=== PATIENT | male | born 1955 | race Caucasian/White ===

== ENCOUNTER 2016-12-30 13:20 | Inpatient (IN) | payer MEDICARE, MEDICAID ==
[~2016-12-30] VITALS: Ht 182.9 cm; Wt 134.9 kg
[2016-12-30] MEDS ORDERED: SODIUM CHLORIDE 0.9% 1,000ML IVBOLUS ONE (14:00)
[2016-12-30] MEDS ORDERED: SODIUM CHLORIDE FLUSH 10ML SYR IVF ONE (14:00)
[2016-12-30 14:16] LABS: HEMATOCRIT 46.3 % (39.2-51.8); HEMOGLOBIN 15.4 g/dL (13.7-18.0); WHITE BLOOD COUNT 9.7 x10^3/uL (3.4-10)
[2016-12-30 14:28] LABS: BLOOD UREA NITROGEN 15 mg/dL (7-18)
[2016-12-30] MEDS ORDERED: CLINDAMYCIN PMX 600MG/50ML 50 ML IV ONE (15:30)
[2016-12-30] MEDS ORDERED: VANCOMYCIN 2,000 MG in SODIUM CHLORIDE 0.9% 500 ML IV ONE (15:30)
[2016-12-30] MEDS ORDERED: PIPERACILLIN/TAZO/PMX 3.375GM 50 ML IV ONE (15:30)
[2016-12-30] MEDS ORDERED: VANCOMYCIN PER PHARMACY MC ONE (15:30)
[2016-12-30] MEDS ORDERED: ASPI-621 PO (15:36)
[2016-12-30] MEDS ORDERED: PIPERACILLIN/TAZO/PMX 3.375GM 50 ML ONE (15:44)
[2016-12-30] MEDS ORDERED: VANCOMYCIN PMX 1GM/200ML 200 ML IV ONE (16:00)
[2016-12-30] MEDS ORDERED: ONDANSETRON 2MG/ML, 2ML IVPush PRN (16:00)
[2016-12-30] MEDS ORDERED: TEMAZEPAM 15 MG CAPSULE PO PRN (16:00)
[2016-12-30] MEDS ORDERED: VANCOMYCIN PER PHARMACY MC PRN (16:00)
[2016-12-30] MEDS ORDERED: MORPHINE SULFATE 4 MG/ML, 1ML IVPush PRN (16:00)
[2016-12-30] MEDS ORDERED: ACETAMINOPHEN 325 MG TABLET PO PRN (16:00)
[2016-12-30] MEDS ORDERED: hydrALAzine 20 MG/ML, 1ML IVPush PRN (16:00)
[2016-12-30 17:42] VITALS: BP 157/75
[2016-12-30] MEDS ORDERED: PIPERACILLIN/TAZO/PMX 3.375GM 50 ML IV SCH (18:00)
[2016-12-30] MEDS ORDERED: PHARMACOKINETIC MONITORING MC PRN (18:00)
[2016-12-30 20:04] VITALS: BP 160/85
[2016-12-30] MEDS: PIPERACILLIN/TAZO/PMX 3.375GM 50 ML IV SCH (21:00)
[2016-12-30] MEDS: LISINOPRIL 20 MG TABLET PO SCH (21:19)
[2016-12-30] MEDS: METOPROLOL TARTRATE 50 MG TABLET PO SCH (21:19)
[2016-12-30] MEDS: INSULIN DETEMIR 100 UNITS/ML, PEN SQ-INSULIN SCH (21:19)
[2016-12-30] MEDS: ENOXAPARIN 40 MG/0.4 ML SQ SCH (21:20)
[2016-12-30] MEDS: INSULIN ASPART 100 UNITS/ML, PEN SQ-INSULIN SCH (21:55)
[2016-12-31] MEDS: HYDROcodone/APAP 5/325 TABLET PO PRN ×4 (00:19→21:03)
[2016-12-31 01:57] VITALS: BP 124/66
[2016-12-31] MEDS: PIPERACILLIN/TAZO/PMX 3.375GM 50 ML IV SCH ×4 (03:21→21:12)
[2016-12-31 05:35] LABS: HEMATOCRIT 44.7 % (39.2-51.8); HEMOGLOBIN 14.8 g/dL (13.7-18.0); WHITE BLOOD COUNT 7.8 x10^3/uL (3.4-10)
[2016-12-31] MEDS: METOPROLOL TARTRATE 50 MG TABLET PO SCH ×2 (06:15→16:38)
[2016-12-31 06:19] LABS: ASPARTATE AMINO TRANSFERASE 22 U/L (15-37); BLOOD UREA NITROGEN 12 mg/dL (7-18)
[2016-12-31] MEDS ORDERED: GADOBUTROL 10 MMOL/10 ML PFS ONE (07:14)
[2016-12-31] MEDS: INSULIN DETEMIR 100 UNITS/ML, PEN SQ-INSULIN SCH (08:15)
[2016-12-31] MEDS: INSULIN ASPART 100 UNITS/ML, PEN SQ-INSULIN SCH ×4 (08:15→21:05)
[2016-12-31] MEDS: POLYETHYLENE GLYCOL 17 GM PACKET PO SCH (08:16)
[2016-12-31] MEDS: LISINOPRIL 20 MG TABLET PO SCH ×2 (08:16→21:04)
[2016-12-31] MEDS: VANCOMYCIN 2,000 MG in SODIUM CHLORIDE 0.9% 500 ML IV SCH (08:16)
[2016-12-31 08:25] VITALS: BP 144/74
[2016-12-31 14:16] VITALS: BP 145/82
[2016-12-31 19:55] VITALS: BP 120/67
[2016-12-31] MEDS ORDERED: INSULIN DETEMIR 100 UNITS/ML, PEN SQ-INSULIN SCH (21:00)
[2016-12-31] MEDS: ENOXAPARIN 40 MG/0.4 ML SQ SCH (21:04)
[2017-01-01] MEDS: PIPERACILLIN/TAZO/PMX 3.375GM 50 ML IV SCH ×4 (02:59→20:41)
[2017-01-01 03:03] VITALS: BP 151/72
[2017-01-01] MEDS: VANCOMYCIN 2,000 MG in SODIUM CHLORIDE 0.9% 500 ML IV SCH ×2 (03:50→21:30)
[2017-01-01] MEDS: METOPROLOL TARTRATE 50 MG TABLET PO SCH ×2 (05:30→16:54)
[2017-01-01 06:40] VITALS: BP 150/79
[2017-01-01] MEDS: INSULIN ASPART 100 UNITS/ML, PEN SQ-INSULIN SCH ×4 (07:00→21:26)
[2017-01-01] MEDS: LISINOPRIL 20 MG TABLET PO SCH ×2 (09:00→21:24)
[2017-01-01] MEDS: INSULIN DETEMIR 100 UNITS/ML, PEN SQ-INSULIN SCH ×2 (10:02→21:25)
[2017-01-01] MEDS: POLYETHYLENE GLYCOL 17 GM PACKET PO SCH (12:23)
[2017-01-01] MEDS: HYDROcodone/APAP 5/325 TABLET PO PRN ×2 (12:28→21:24)
[2017-01-01 13:30] VITALS: BP 136/79
[2017-01-01 19:05] VITALS: BP 154/67
[2017-01-01] MEDS ORDERED: INSULIN DETEMIR 100 UNITS/ML, PEN SQ-INSULIN SCH (21:00)
[2017-01-01] MEDS: ENOXAPARIN 40 MG/0.4 ML SQ SCH (21:24)
[2017-01-02 01:40] VITALS: BP 168/78
[2017-01-02] MEDS: PIPERACILLIN/TAZO/PMX 3.375GM 50 ML IV SCH ×4 (02:58→22:41)
[2017-01-02] MEDS: METOPROLOL TARTRATE 50 MG TABLET PO SCH ×2 (06:03→17:32)
[2017-01-02 07:57] VITALS: BP 147/89
[2017-01-02] MEDS: INSULIN ASPART 100 UNITS/ML, PEN SQ-INSULIN SCH ×4 (09:07→21:10)
[2017-01-02] MEDS: INSULIN DETEMIR 100 UNITS/ML, PEN SQ-INSULIN SCH ×3 (09:07→21:09)
[2017-01-02] MEDS: LISINOPRIL 20 MG TABLET PO SCH ×2 (09:08→21:11)
[2017-01-02] MEDS: POLYETHYLENE GLYCOL 17 GM PACKET PO SCH (09:08)
[2017-01-02] MEDS ORDERED: FLUCONAZOLE 200 MG/100 ML 100 ML IV SCH (12:00)
[2017-01-02] MEDS: AMLODIPINE 5 MG TABLET PO SCH (12:20)
[2017-01-02 14:30] VITALS: BP 177/82
[2017-01-02] MEDS: VANCOMYCIN 2,000 MG in SODIUM CHLORIDE 0.9% 500 ML IV SCH (17:32)
[2017-01-02 19:32] VITALS: BP 136/74
[2017-01-02 21:07] VITALS: BP 148/77
[2017-01-02] MEDS: ENOXAPARIN 40 MG/0.4 ML SQ SCH (21:09)
[2017-01-03 01:24] VITALS: BP_SYST 128; BP_DIAS 66; BP_DIAS 86
[2017-01-03] MEDS: PIPERACILLIN/TAZO/PMX 3.375GM 50 ML IV SCH ×3 (05:15→20:16)
[2017-01-03] MEDS: INSULIN DETEMIR 100 UNITS/ML, PEN SQ-INSULIN SCH ×2 (05:17→21:44)
[2017-01-03 05:18] VITALS: BP 136/75
[2017-01-03] MEDS: METOPROLOL TARTRATE 50 MG TABLET PO SCH ×3 (05:19→17:40)
[2017-01-03] MEDS: INSULIN ASPART 100 UNITS/ML, PEN SQ-INSULIN SCH ×4 (07:00→18:30)
[2017-01-03 08:09] VITALS: BP 126/72
[2017-01-03] MEDS ORDERED: AMOX1TAB64 PO (09:14)
[2017-01-03] MEDS ORDERED: CLON0.1T12 PO (09:14)
[2017-01-03] MEDS ORDERED: HYDR-3343 PO (09:14)
[2017-01-03] MEDS ORDERED: TRAM50TA2 PO (09:14)
[2017-01-03] MEDS ORDERED: SULF1TAB24 PO (09:14)
[2017-01-03] MEDS ORDERED: METO50TA82 PO (09:14)
[2017-01-03] MEDS ORDERED: INSU100I28 SQ-INSULIN (09:14)
[2017-01-03] MEDS ORDERED: AMLO10TA2 PO (09:14)
[2017-01-03] MEDS ORDERED: VORI200T2 PO (09:23)
[2017-01-03] MEDS: POLYETHYLENE GLYCOL 17 GM PACKET PO SCH (10:00)
[2017-01-03] MEDS: LISINOPRIL 20 MG TABLET PO SCH ×2 (10:01→20:23)
[2017-01-03] MEDS: AMLODIPINE 5 MG TABLET PO SCH (10:01)
[2017-01-03] MEDS: MICAFUNGIN 150 MG in SODIUM CHLORIDE 0.9% 100 ML IV SCH (10:02)
[2017-01-03] MEDS: VANCOMYCIN 2,000 MG in SODIUM CHLORIDE 0.9% 500 ML IV SCH (11:48)
[2017-01-03 13:44] VITALS: BP 104/61
[2017-01-03 19:16] VITALS: BP 150/81
[2017-01-03] MEDS: FLORASTOR 250 MG CAPSULE PO SCH (20:24)
[2017-01-03] MEDS: ENOXAPARIN 40 MG/0.4 ML SQ SCH (20:31)
[2017-01-04] MEDS: PIPERACILLIN/TAZO/PMX 3.375GM 50 ML IV SCH ×4 (02:05→19:44)
[2017-01-04 02:15] VITALS: BP 116/69
[2017-01-04] MEDS: VANCOMYCIN 2,000 MG in SODIUM CHLORIDE 0.9% 500 ML IV SCH ×2 (04:28→21:42)
[2017-01-04] MEDS: HYDROcodone/APAP 5/325 TABLET PO PRN ×2 (04:39→22:02)
[2017-01-04] MEDS: METOPROLOL TARTRATE 50 MG TABLET PO SCH ×2 (06:00→18:00)
[2017-01-04] MEDS: INSULIN ASPART 100 UNITS/ML, PEN SQ-INSULIN SCH ×4 (07:00→16:20)
[2017-01-04 07:21] VITALS: BP 122/73
[2017-01-04] MEDS: INSULIN DETEMIR 100 UNITS/ML, PEN SQ-INSULIN SCH ×2 (07:29→17:26)
[2017-01-04] MEDS: AMLODIPINE 5 MG TABLET PO SCH (09:00)
[2017-01-04] MEDS: FLORASTOR 250 MG CAPSULE PO SCH ×2 (09:29→22:02)
[2017-01-04] MEDS: LISINOPRIL 20 MG TABLET PO SCH ×2 (09:30→21:44)
[2017-01-04] MEDS: POLYETHYLENE GLYCOL 17 GM PACKET PO SCH (09:30)
[2017-01-04] MEDS: MICAFUNGIN 150 MG in SODIUM CHLORIDE 0.9% 100 ML IV SCH (10:21)
[2017-01-04 12:48] VITALS: BP 106/70
[2017-01-04 18:48] VITALS: BP 155/79
[2017-01-04] MEDS: ENOXAPARIN 40 MG/0.4 ML SQ SCH (21:42)
[2017-01-05] MEDS: PIPERACILLIN/TAZO/PMX 3.375GM 50 ML IV SCH ×2 (02:00→09:23)
[2017-01-05 02:20] VITALS: BP 119/71
[2017-01-05] MEDS: HYDROcodone/APAP 5/325 TABLET PO PRN (04:16)
[2017-01-05] MEDS: METOPROLOL TARTRATE 50 MG TABLET PO SCH (06:19)
[2017-01-05 07:30] VITALS: BP 101/66
[2017-01-05] MEDS: AMLODIPINE 5 MG TABLET PO SCH (09:00)
[2017-01-05] MEDS: POLYETHYLENE GLYCOL 17 GM PACKET PO SCH (09:00)
[2017-01-05] MEDS: LISINOPRIL 20 MG TABLET PO SCH (09:00)
[2017-01-05] MEDS: INSULIN DETEMIR 100 UNITS/ML, PEN SQ-INSULIN SCH (09:00)
[2017-01-05] MEDS: FLORASTOR 250 MG CAPSULE PO SCH (09:23)
[2017-01-05] MEDS: MICAFUNGIN 150 MG in SODIUM CHLORIDE 0.9% 100 ML IV SCH (09:30)
[2017-01-05] MEDS ORDERED: LACT1CAP24 PO (09:32)
[2017-01-05] MEDS ORDERED: LISI-170 PO (09:32)
[2017-01-05] MEDS: INSULIN ASPART 100 UNITS/ML, PEN SQ-INSULIN SCH (09:34)
[2017-01-05] MEDS ORDERED: CLON0.1T12 PO (09:50)
== END 2017-01-05 11:10 | disposition home or self-care (01) | DRG 622 ==
LOC: ED 14:27 → EDIP 15:20 → 4WST 17:27
PROVIDERS: ADMIT Internal Medicine; ATTEND Internal Medicine
PROC: 0JBR0ZZ Excision of Left Foot Subcutaneous Tissue and Fascia, Open Approach (ICD-10-PCS; principal; 2017-01-01)
DX: E11.621 Type 2 diabetes mellitus with foot ulcer (principal); E43 Unspecified severe protein-calorie malnutrition; L97.529 Non-pressure chronic ulcer of other part of left foot with unspecified severity; E11.00 Type 2 diabetes mellitus with hyperosmolarity without nonketotic hyperglycemic-hyperosmolar coma (NKHHC); E11.40 Type 2 diabetes mellitus with diabetic neuropathy, unspecified; Z68.41 Body mass index [BMI] 40.0-44.9, adult; L03.116 Cellulitis of left lower limb; E66.01 Morbid (severe) obesity due to excess calories; E11.65 Type 2 diabetes mellitus with hyperglycemia; I10 Essential (primary) hypertension; Z91.14 Patient's other noncompliance with medication regimen; Z87.891 Personal history of nicotine dependence; Z80.1 Family history of malignant neoplasm of trachea, bronchus and lung; M60.9 Myositis, unspecified; E11.51 Type 2 diabetes mellitus with diabetic peripheral angiopathy without gangrene
CPT/HCPCS: 36415; 80048; 80053; 80061; 80202; 81001; 82040; 82565; 82962; 83036; 83605; 83735; 84100; 84439; 84443; 85025; 85651; 86140; 87040; 87070; 87086; 87106; 87147; 87205; 93005; 96361; 96365; 96375; A9585; J1650; J1815; J2248; J2543; J3370; J1450; J7030; J7040

== ENCOUNTER 2017-03-12 17:50 | Emergency (ER) | payer MEDICAID, MEDICARE ==
[~2017-03-12] VITALS: Ht 182.9 cm; Wt 133.0 kg
[~2017-03-12 17:50] MED LIST: AMLO10TA2 PO; AMOX1TAB64 PO; ASPI-621 PO; CLON0.1T12 PO; HYDR-3343 PO; INSU100I28 SQ-INSULIN; LACT1CAP24 PO; LISI-170 PO; METO50TA82 PO; SULF1TAB24 PO; TRAM50TA2 PO; VORI200T2 PO
[2017-03-12 17:51] VITALS: BP 123/74
[2017-03-12] MEDS ORDERED: IBUPROFEN 200 MG TABLET PO ONE (19:30)
[2017-03-12] MEDS ORDERED: METHOCARBAMOL 750 MG TABLET PO ONE (19:30)
[2017-03-12] MEDS ORDERED: IBUPROFEN 200 MG TABLET ONE (19:32)
[2017-03-12] MEDS ORDERED: METHOCARBAMOL 750 MG TABLET ONE (19:32)
== END 2017-03-12 19:45 | disposition home or self-care (01) ==
LOC: ED 19:39
DX: M54.6 Pain in thoracic spine (principal); E11.65 Type 2 diabetes mellitus with hyperglycemia; L03.116 Cellulitis of left lower limb; E11.628 Type 2 diabetes mellitus with other skin complications; Z72.89 Other problems related to lifestyle; I10 Essential (primary) hypertension
CPT/HCPCS: 71020; 72072; 82962; 99284

== ENCOUNTER 2017-03-25 16:00 | Emergency (ER) | payer MEDICARE ==
[~2017-03-25] VITALS: Ht 182.9 cm; Wt 130.0 kg
[2017-03-25] MEDS ORDERED: LISINOPRIL 10 MG TABLET PO ONE (17:30)
[2017-03-25 17:57] LABS: HEMATOCRIT 44.9 % (39.2-51.8); HEMOGLOBIN 14.7 g/dL (13.7-18.0); WHITE BLOOD COUNT 14.5 x10^3/uL (3.4-10)
[2017-03-25 18:06] LABS: BLOOD UREA NITROGEN 10 mg/dL (7-18)
[2017-03-25 18:09] LABS: ASPARTATE AMINO TRANSFERASE 14 U/L (15-37)
[2017-03-25] MEDS ORDERED: OMNIPAQUE 350 MG/ML, 100ML BOTTLE ONE (18:48)
[2017-03-25 18:50] VITALS: BP 188/90
[2017-03-25] MEDS ORDERED: IBUPROFEN 200 MG TABLET ONE (19:28)
[2017-03-25] MEDS ORDERED: IBUPROFEN 200 MG TABLET PO ONE (19:30)
== END 2017-03-25 19:40 | disposition home or self-care (01) ==
LOC: ED 19:35
DX: K43.9 Ventral hernia without obstruction or gangrene (principal); K42.9 Umbilical hernia without obstruction or gangrene; I10 Essential (primary) hypertension; E11.65 Type 2 diabetes mellitus with hyperglycemia; N20.0 Calculus of kidney; M54.6 Pain in thoracic spine; Z91.14 Patient's other noncompliance with medication regimen; Z79.4 Long term (current) use of insulin; Z88.8 Allergy status to other drugs, medicaments and biological substances
CPT/HCPCS: 36415; 74020; 74177; 80053; 81001; 83690; 85025; 93005; 99285; Q9967

== ENCOUNTER → 2018-08-20 | Outpatient (CLI) | payer MEDICARE, MEDICAID ==
[~2018-08-20] MED LIST changes: -AMLO10TA2 PO; +AMLO10TA8 PO; -ASPI-621 PO; +ASPI81TA45 PO
== END | disposition home or self-care (01) ==
LOC: RAD 12:11
PROVIDERS: ATTEND Neurological Surgery
DX: M47.814 Spondylosis without myelopathy or radiculopathy, thoracic region (principal); M48.04 Spinal stenosis, thoracic region; J90 Pleural effusion, not elsewhere classified
CPT/HCPCS: 72146

== ENCOUNTER → 2018-08-21 | Outpatient (CLI) | payer MEDICARE, MEDICAID | END | disposition home or self-care (01) | LOC: RAD 08:50 | PROVIDERS: ATTEND Neurological Surgery | DX: Z02.9 Encounter for administrative examinations, unspecified (principal) ==

== ENCOUNTER 2018-09-18 08:26 | Outpatient (CLI) | payer MEDICARE, MEDICAID | END 2018-09-18 23:59 | disposition home or self-care (01) | LOC: RAD 08:26 | PROVIDERS: ATTEND Internal Medicine Geriatric Medicine | DX: Z02.9 Encounter for administrative examinations, unspecified (principal) ==

== ENCOUNTER → 2018-09-24 | Outpatient (CLI) | payer MEDICARE, MEDICAID | END | disposition home or self-care (01) | LOC: RAD 08:24 | PROVIDERS: ATTEND Internal Medicine Geriatric Medicine | DX: M47.817 Spondylosis without myelopathy or radiculopathy, lumbosacral region (principal); M48.061 Spinal stenosis, lumbar region without neurogenic claudication; M13.851 Other specified arthritis, right hip; M76.899 Other specified enthesopathies of unspecified lower limb, excluding foot; R55 Syncope and collapse | CPT/HCPCS: 72148 ==

== ENCOUNTER 2018-11-17 11:12 | Outpatient (CLI) | payer MEDICARE, MEDICAID | END 2018-11-17 23:59 | disposition home or self-care (01) | LOC: RAD 11:12 | PROVIDERS: ATTEND Neurological Surgery | DX: M51.24 Other intervertebral disc displacement, thoracic region (principal); J90 Pleural effusion, not elsewhere classified; R79.1 Abnormal coagulation profile; Z98.890 Other specified postprocedural states | CPT/HCPCS: 72157; A9585 ==

== ENCOUNTER 2019-02-25 15:46 | Inpatient (IN) | payer MEDICARE, MEDICAID ==
[~2019-02-25] VITALS: Ht 182.9 cm; Wt 122.6 kg
[2019-02-25] MEDS ORDERED: SODIUM CHLORIDE FLUSH 10ML SYR IVF ONE (16:00)
[2019-02-25] MEDS ORDERED: VANCOMYCIN PER PHARMACY MC ONE (16:30)
[2019-02-25] MEDS ORDERED: VANCOMYCIN 2,000 MG in SODIUM CHLORIDE 0.9% 500 ML IV ONE (16:30)
[2019-02-25] MEDS ORDERED: PIPERACILLIN/TAZO/PMX 3.375GM 50 ML IVPB ONE (16:30)
[2019-02-25] MEDS ORDERED: SODIUM CHLORIDE 0.9%, 500ML IVBOLUS ONE ×3 (16:30→20:00)
[2019-02-25 16:34] LABS: BASOPHILS % (AUTO) 0 % (0-1); EOSINOPHILS # (AUTO) 0.14 x10^3/uL (0-0.4); EOSINOPHILS % (AUTO) 1 % (1-7); LYMPHOCYTES # (AUTO) 0.75 x10^3/uL (1-3.4); LYMPHOCYTES % (AUTO) 5 % (22-44); MD NO; MEAN CORPUSCULAR HEMOGLOBIN 23.9 pg (27.5-34.5); MEAN CORPUSCULAR HGB CONC 31.8 g/dL (33.2-36.2); MEAN CORPUSCULAR VOLUME 75.2 fL (81-97); MEAN PLATELET VOLUME 9.7 fL (7.4-10.4); MONOCYTES # (AUTO) 0.51 x10^3/uL (0.2-0.8); MONOCYTES % (AUTO) 3 % (2-9); NEUTROPHILS # (AUTO) 15.06 x10^3/uL (1.8-6.8); NEUTROPHILS % (AUTO) 92 % (42-75); PLATELET COUNT 302 x10^3/uL (130-400); RED CELL DISTRIBUTION WIDTH 20.3 % (9.4-14.8)
[2019-02-25 16:46] LABS: ALANINE AMINOTRANSFERASE 61 U/L (12-78); ALBUMIN 2.8 g/dL (3.4-5.0); ANION GAP 10 mmol/L (5-15); CHLORIDE 103 mmol/L (98-107); CREATININE 1.63 mg/dL (0.7-1.3)
[2019-02-25 16:48] LABS: ALKALINE PHOSPHATASE 195 U/L (45-117); BILIRUBIN,TOTAL 1.3 mg/dL (0.2-1.0); TOTAL PROTEIN 9.4 g/dL (6.4-8.2)
--- NOTE | 2019-02-25 16:50 | NUR ---
LAB AT BEDSIDE FOR 2ND
--- NOTE | 2019-02-25 17:00 | NUR ---
PT TO CT
[2019-02-25 17:07] LABS: ACETONE, SERUM Small (20mg/dL) mg/dL (Negative)
[2019-02-25] MEDS ORDERED: PIPERACILLIN/TAZO/PMX 3.375GM 50 ML ONE (17:19)
[2019-02-25] MEDS ORDERED: ACETAMINOPHEN 500 MG TABLET ONE (17:19)
[2019-02-25] MEDS ORDERED: OMNIPAQUE 350 MG/ML, 100ML BOTTLE ONE (17:23)
[2019-02-25] MEDS ORDERED: ACETAMINOPHEN 325 MG TABLET PO ONE (17:30)
--- NOTE | 2019-02-25 17:32 | NUR ---
PT RETURNED FROM CT, ADMITTING MD AT BEDSIDE
--- NOTE | 2019-02-25 17:54 | NUR ---
UPON RETURN FROM CT PT BP DROPPED, ADMITTING MD AT BEDSIDE, ORDERS TO RECIEVE ADDITIONAL LITER BOLUS OBTAINED. DR. MCGRATH NOTIFIED. WILL TRANSFER TO CCU IF BP DOES NOT COME UP AFTER FLUIDS. PER DR MCGRATH DO NOT GIVE TYLENOL PT RECEVED 1G IN ROUTE VIA [facility] AND TEMP NOW 98.4.
[2019-02-25] MEDS ORDERED: DEXTROSE 50%, 50ML SYRINGE IVPush PRN (18:00)
[2019-02-25] MEDS ORDERED: DEXTROSE 4 GM TAB.CHEW PO PRN (18:00)
[2019-02-25] MEDS ORDERED: ONDANSETRON 2MG/ML, 2ML IVPush PRN (18:00)
[2019-02-25] MEDS ORDERED: VANCOMYCIN PER PHARMACY MC PRN (18:00)
[2019-02-25] MEDS ORDERED: ONDANSETRON ODT 4 MG PO PRN (18:00)
[2019-02-25] MEDS ORDERED: hydrALAzine 20 MG/ML, 1ML IVPush PRN (18:00)
[2019-02-25] MEDS ORDERED: morphine SULFATE 10 MG/ML, 1ML IVPush PRN (18:00)
[2019-02-25] MEDS ORDERED: GLUCAGON 1 MG IM PRN (18:00)
[2019-02-25 18:10] LABS: MICROSCOPIC INDICATED
[2019-02-25 18:11] LABS: CULTURE INDICATED? YES
--- NOTE | 2019-02-25 18:19 | NUR ---
AT BEDSIDE, MANUAL BP 77/42. 2ND LITER STARTED. ADDITIONAL IV ESTABLISHED
[2019-02-25 18:30] LABS: CLOSTRIDIUM DIFFICILE ANTIGEN NEGATIVE; CLOSTRIDIUM DIFFICILE TOXIN NEGATIVE (Negative)
--- NOTE | 2019-02-25 19:06 | NUR ---
BP 85/47 AFTER IVF INFUSED. REPORT TO TRAUMA RN LUISITO, PT MOVED TO TRAUMA 4.
--- NOTE | 2019-02-25 19:10 | NUR ---
received report from SOTERO Lofton. patient moved from 31 to trauma 3. hypotensive. alert and oriented.
--- NOTE | 2019-02-25 19:45 | NUR ---
consent signed for central line placement. ERP at bedside.
--- NOTE | 2019-02-25 19:55 | NUR ---
central line placed. X ray ordered and EKG.
--- NOTE | 2019-02-25 20:10 | NUR ---
Xray and EKG done. patient had a large bowel movement and incontinent to urine.
--- NOTE | 2019-02-25 20:25 | NUR ---
patient cleaned. noticed a large excoriated skin on lumbar area. protectant paste applied ( calazime ).
--- NOTE | 2019-02-25 20:35 | NUR ---
lockhart placed with cloudy yellow urine output.
[2019-02-25] MEDS: SODIUM CHLORIDE FLUSH 10ML SYR IVF SCH (20:50)
[2019-02-25] MEDS ORDERED: INSULIN LISPRO 100 UNITS/ML, PEN SQ-INSULIN SCH (21:00)
[2019-02-25] MEDS ORDERED: PHARMACOKINETIC MONITORING MC PRN (21:30)
[2019-02-25] MEDS ORDERED: TORS20TA2 PO (21:46)
--- NOTE | 2019-02-25 21:53 | NUR ---
REPORT TO DESTINY BEY FOR 543
[2019-02-25] MEDS ORDERED: POTA10TA5 PO (22:13)
[2019-02-25] MEDS ORDERED: ATOR40TA PO (22:13)
[2019-02-25] MEDS ORDERED: LISI-170 PO (22:13)
[2019-02-25] MEDS ORDERED: CARV3.1212 PO (22:13)
[2019-02-25] MEDS: ATORVASTATIN 80 MG TABLET PO SCH (22:13)
[2019-02-25] MEDS ORDERED: ASPI-496 PO (22:13)
[2019-02-25] MEDS ORDERED: SPIR25TA PO (22:13)
[2019-02-25] MEDS: INSULIN GLARGINE 100 UNITS/ML, PEN SQ-INSULIN SCH (23:42)
[2019-02-26 00:06] VITALS: BP 94/52
[2019-02-26] MEDS: SODIUM CHLORIDE 0.9% 1,000 ML IV SCH ×2 (00:18→11:49)
[2019-02-26] MEDS ORDERED: SODIUM CHLORIDE 0.9%, 500ML IVBOLUS ONE (02:30)
[2019-02-26] MEDS ORDERED: NOREPINEPHRINE 4 MG in SODIUM CHLORIDE 0.9% 246 ML IV PRN (02:30)
[2019-02-26] MEDS: PIPERACILLIN/TAZO/PMX 3.375GM 50 ML IV SCH ×4 (02:34→23:26)
[2019-02-26 04:00] VITALS: BP 119/71
[2019-02-26 05:03] LABS: BASOPHILS # (AUTO) 0.06 x10^3/uL (0-0.1); BASOPHILS % (AUTO) 1 % (0-1); EOSINOPHILS % (AUTO) 0 % (1-7); LYMPHOCYTES # (AUTO) 0.92 x10^3/uL (1-3.4); LYMPHOCYTES % (AUTO) 8 % (22-44); MD NO; MEAN CORPUSCULAR HEMOGLOBIN 23.5 pg (27.5-34.5); MEAN CORPUSCULAR HGB CONC 31.2 g/dL (33.2-36.2); MEAN CORPUSCULAR VOLUME 75.1 fL (81-97); MEAN PLATELET VOLUME 9.7 fL (7.4-10.4); MONOCYTES # (AUTO) 0.75 x10^3/uL (0.2-0.8); MONOCYTES % (AUTO) 6 % (2-9); NEUTROPHILS # (AUTO) 10.09 x10^3/uL (1.8-6.8); NEUTROPHILS % (AUTO) 85 % (42-75); PLATELET COUNT 260 x10^3/uL (130-400); RED BLOOD COUNT 4.29 x10^6/uL (4.38-5.82); RED CELL DISTRIBUTION WIDTH 20.3 % (9.4-14.8)
[2019-02-26 05:14] LABS: ALANINE AMINOTRANSFERASE 48 U/L (12-78); ALBUMIN 2.3 g/dL (3.4-5.0); ANION GAP 7 mmol/L (5-15); CALCIUM 8.1 mg/dL (8.5-10.1); CHLORIDE 110 mmol/L (98-107); CREATININE 1.42 mg/dL (0.7-1.3)
[2019-02-26 05:16] LABS: ALKALINE PHOSPHATASE 153 U/L (45-117); BILIRUBIN,TOTAL 0.7 mg/dL (0.2-1.0); TOTAL PROTEIN 7.6 g/dL (6.4-8.2)
[2019-02-26 09:00] VITALS: BP 101/49
[2019-02-26] MEDS: INSULIN LISPRO 100 UNITS/ML, PEN SQ-INSULIN SCH ×4 (09:01→21:05)
[2019-02-26] MEDS: PANTOPROZOLE 40MG TABLET PO SCH (09:01)
[2019-02-26] MEDS: SODIUM CHLORIDE FLUSH 10ML SYR IVF SCH ×2 (09:02→21:04)
[2019-02-26] MEDS: ENOXAPARIN 40 MG/0.4 ML SQ SCH (14:34)
[2019-02-26] MEDS ORDERED: PIPERACILLIN/TAZO/PMX 3.375GM 50 ML IV SCH (16:00)
[2019-02-26] MEDS: VANCOMYCIN 2,000 MG in SODIUM CHLORIDE 0.9% 500 ML IV SCH (17:55)
[2019-02-26 18:57] VITALS: BP 117/71
[2019-02-26] MEDS: ATORVASTATIN 80 MG TABLET PO SCH (21:04)
[2019-02-26] MEDS: INSULIN GLARGINE 100 UNITS/ML, PEN SQ-INSULIN SCH (21:05)
[2019-02-27 01:32] VITALS: BP 136/95
[2019-02-27] MEDS: ACETAMINOPHEN 325 MG TABLET PO PRN ×4 (03:41→23:30)
[2019-02-27] MEDS: PIPERACILLIN/TAZO/PMX 3.375GM 50 ML IV SCH ×4 (05:10→23:21)
[2019-02-27 07:33] LABS: ANION GAP 7 mmol/L (5-15); CALCIUM 8.1 mg/dL (8.5-10.1); CHLORIDE 108 mmol/L (98-107)
[2019-02-27 07:39] LABS: % IRON SATURATION 8 % (20-55); CREATININE 1.52 mg/dL (0.7-1.3); IRON LEVEL 16 mcg/dL (65-175); TOTAL IRON BINDING CAPACITY 205 mcg/dL (250-450)
[2019-02-27] MEDS: INSULIN LISPRO 100 UNITS/ML, PEN SQ-INSULIN SCH ×4 (07:41→21:58)
[2019-02-27] MEDS: SODIUM CHLORIDE FLUSH 10ML SYR IVF SCH ×2 (08:01→21:15)
[2019-02-27] MEDS: PANTOPROZOLE 40MG TABLET PO SCH (08:01)
[2019-02-27 08:22] VITALS: BP 99/56
[2019-02-27 09:14] LABS: TROPONIN I 0.739 ng/mL (0.000-0.045)
[2019-02-27] MEDS ORDERED: ERGOCALCIFEROL 50,000 UNIT CAPSULE PO SCH (10:00)
[2019-02-27] MEDS: FENTANYL PF 100 MCG/2ML IV PRN ×2 (16:45→16:55)
[2019-02-27] MEDS ORDERED: FENTANYL PF 100 MCG/2ML ONE (16:47)
[2019-02-27] MEDS ORDERED: EPINEPHRINE 1 MG/ML, 1ML ONE (16:48)
[2019-02-27] MEDS ORDERED: PROPOFOL 10 MG/ML, 20ML ONE (17:05)
[2019-02-27] MEDS ORDERED: CEFAZOLIN 1,000 MG ONE (17:05)
[2019-02-27] MEDS ORDERED: ONDANSETRON 2MG/ML, 2ML ONE (17:05)
[2019-02-27] MEDS ORDERED: DEXAMETHASONE 4 MG/ML, 1ML ONE (17:05)
[2019-02-27] MEDS ORDERED: OXYcodone 5 MG/5 ML ORAL.SOL UDC PO PRN (17:30)
[2019-02-27] MEDS ORDERED: ACETAMINOPHEN 325 MG TABLET PO PRN (17:30)
[2019-02-27] MEDS ORDERED: ONDANSETRON 2MG/ML, 2ML IV PRN (17:30)
[2019-02-27] MEDS ORDERED: ONDANSETRON ODT 8 MG PO PRN (17:30)
[2019-02-27] MEDS ORDERED: PROMETHAZINE 25 MG/ML, 1ML IV PRN (17:30)
[2019-02-27] MEDS ORDERED: HYDROmorphone 2 MG/ML, 1ML IVPush PRN (17:30)
[2019-02-27] MEDS ORDERED: FENTANYL PF 100 MCG/2ML IV PRN (17:30)
[2019-02-27] MEDS: ENOXAPARIN 40 MG/0.4 ML SQ SCH (18:01)
[2019-02-27] MEDS: FERROUS SULFATE 325 MG TABLET PO SCH (18:02)
[2019-02-27] MEDS: VANCOMYCIN 2,000 MG in SODIUM CHLORIDE 0.9% 500 ML IV SCH (18:59)
[2019-02-27 19:54] VITALS: BP 130/75
[2019-02-27] MEDS: ATORVASTATIN 80 MG TABLET PO SCH (21:15)
[2019-02-27] MEDS: INSULIN GLARGINE 100 UNITS/ML, PEN SQ-INSULIN SCH (21:59)
[2019-02-28 00:46] VITALS: BP 95/63
[2019-02-28 03:38] LABS: ANION GAP 6 mmol/L (5-15); CALCIUM 7.9 mg/dL (8.5-10.1); CHLORIDE 109 mmol/L (98-107)
[2019-02-28 03:40] LABS: CREATININE 1.38 mg/dL (0.7-1.3)
[2019-02-28] MEDS: PIPERACILLIN/TAZO/PMX 3.375GM 50 ML IV SCH ×4 (04:54→23:26)
[2019-02-28] MEDS: INSULIN LISPRO 100 UNITS/ML, PEN SQ-INSULIN SCH ×4 (07:00→20:44)
[2019-02-28 07:45] VITALS: BP 123/75
[2019-02-28] MEDS: PANTOPROZOLE 40MG TABLET PO SCH (09:27)
[2019-02-28] MEDS: SODIUM CHLORIDE FLUSH 10ML SYR IVF SCH ×2 (09:27→20:41)
[2019-02-28] MEDS: FERROUS SULFATE 325 MG TABLET PO SCH ×2 (09:27→15:21)
[2019-02-28] MEDS ORDERED: EPHEDRINE 50 MG/ML, 1ML ONE (13:31)
[2019-02-28] MEDS ORDERED: ETOMIDATE 20 MG/10 ML ONE (13:31)
[2019-02-28 13:40] VITALS: BP 90/64
[2019-02-28] MEDS: ENOXAPARIN 40 MG/0.4 ML SQ SCH (15:21)
[2019-02-28 19:41] VITALS: BP 100/64
[2019-02-28] MEDS: ATORVASTATIN 80 MG TABLET PO SCH (20:41)
[2019-02-28] MEDS: INSULIN GLARGINE 100 UNITS/ML, PEN SQ-INSULIN SCH (21:23)
[2019-03-01 01:23] VITALS: BP 99/63
[2019-03-01] MEDS: PIPERACILLIN/TAZO/PMX 3.375GM 50 ML IV SCH ×4 (04:59→23:04)
[2019-03-01 06:58] VITALS: BP 111/69
[2019-03-01] MEDS: INSULIN LISPRO 100 UNITS/ML, PEN SQ-INSULIN SCH ×4 (07:00→20:24)
[2019-03-01] MEDS: PANTOPROZOLE 40MG TABLET PO SCH (09:24)
[2019-03-01] MEDS: FERROUS SULFATE 325 MG TABLET PO SCH ×2 (09:24→16:54)
[2019-03-01] MEDS: SODIUM CHLORIDE FLUSH 10ML SYR IVF SCH ×2 (09:24→20:03)
[2019-03-01] MEDS ORDERED: FENTANYL PF 100 MCG/2ML ONE ×2 (12:47→14:23)
[2019-03-01] MEDS ORDERED: ETOMIDATE 20 MG/10 ML ONE (12:47)
[2019-03-01] MEDS ORDERED: FENTANYL PF 100 MCG/2ML IV PRN ×2 (13:00→15:30)
[2019-03-01] MEDS ORDERED: HYDROmorphone 2 MG/ML, 1ML IVPush PRN ×2 (13:00→15:30)
[2019-03-01] MEDS ORDERED: HALOPERIDOL 5 MG/ML IV PRN (13:00)
[2019-03-01] MEDS ORDERED: OXYcodone 5 MG/5 ML ORAL.SOL UDC PO PRN ×2 (13:00→15:30)
[2019-03-01] MEDS ORDERED: PROMETHAZINE 25 MG/ML, 1ML IV PRN ×2 (13:00→15:30)
[2019-03-01] MEDS ORDERED: LABETALOL 5MG/ML, 20ML IV PRN ×2 (13:00→15:30)
[2019-03-01] MEDS ORDERED: ALBUTEROL/IPRATROPIUM 2.5MG/0.5MG, 3 ML NPPB PRN (13:00)
[2019-03-01] MEDS ORDERED: MEPERIDINE/PF 25MG/ML,1ML IVPush PRN ×2 (13:00→15:30)
[2019-03-01] MEDS ORDERED: METOPROLOL 1 MG/ML, 5ML IV PRN (13:00)
[2019-03-01] MEDS ORDERED: hydrALAzine 20 MG/ML, 1ML IV PRN ×2 (13:00→15:30)
[2019-03-01] MEDS: ENOXAPARIN 40 MG/0.4 ML SQ SCH (14:00)
[2019-03-01] MEDS ORDERED: PROPOFOL 10 MG/ML, 20ML ONE (14:14)
[2019-03-01] MEDS ORDERED: NEOSTIGMINE 1 MG/ML, 10ML ONE (14:14)
[2019-03-01] MEDS ORDERED: GLYCOPYRROLATE 0.2MG/1ML, 5ML ONE (14:14)
[2019-03-01] MEDS ORDERED: CEFAZOLIN 1,000 MG ONE (14:14)
[2019-03-01] MEDS ORDERED: ONDANSETRON 2MG/ML, 2ML ONE (14:14)
[2019-03-01] MEDS ORDERED: SUCCINYLCHOLINE 20 MG/ML, 10ML ONE (14:14)
[2019-03-01] MEDS ORDERED: ROCURONIUM 10MG/ML,5ML ONE (14:14)
[2019-03-01] MEDS ORDERED: DEXAMETHASONE 4 MG/ML, 1ML ONE (14:14)
[2019-03-01] MEDS ORDERED: HYDROmorphone 1 MG/ML, 1ML VIAL ONE (14:23)
[2019-03-01] MEDS ORDERED: ESMOLOL 100 MG/10 ML ONE (14:39)
[2019-03-01 19:48] VITALS: BP 110/69
[2019-03-01] MEDS: INSULIN GLARGINE 100 UNITS/ML, PEN SQ-INSULIN SCH (20:23)
[2019-03-01] MEDS: ATORVASTATIN 80 MG TABLET PO SCH (20:23)
[2019-03-01] MEDS: OXYcodone IR 5MG TABLET PO PRN (20:23)
[2019-03-02 00:29] VITALS: BP 101/65
[2019-03-02 04:34] VITALS: BP 90/59
[2019-03-02] MEDS: PIPERACILLIN/TAZO/PMX 3.375GM 50 ML IV SCH ×4 (04:41→23:01)
[2019-03-02 05:04] LABS: BASOPHILS # (AUTO) 0.13 x10^3/uL (0-0.1); BASOPHILS % (AUTO) 1 % (0-1); EOSINOPHILS # (AUTO) 0.34 x10^3/uL (0-0.4); EOSINOPHILS % (AUTO) 3 % (1-7); LYMPHOCYTES # (AUTO) 1.54 x10^3/uL (1-3.4); LYMPHOCYTES % (AUTO) 15 % (22-44); MD NO; MEAN CORPUSCULAR HEMOGLOBIN 23.5 pg (27.5-34.5); MEAN CORPUSCULAR HGB CONC 31.2 g/dL (33.2-36.2); MEAN CORPUSCULAR VOLUME 75.2 fL (81-97); MEAN PLATELET VOLUME 9.4 fL (7.4-10.4); MONOCYTES # (AUTO) 0.92 x10^3/uL (0.2-0.8); MONOCYTES % (AUTO) 9 % (2-9); NEUTROPHILS # (AUTO) 7.46 x10^3/uL (1.8-6.8); NEUTROPHILS % (AUTO) 72 % (42-75); PLATELET COUNT 282 x10^3/uL (130-400); RED BLOOD COUNT 4.33 x10^6/uL (4.38-5.82); RED CELL DISTRIBUTION WIDTH 20.5 % (9.4-14.8)
[2019-03-02 05:17] LABS: ANION GAP 7 mmol/L (5-15); CHLORIDE 108 mmol/L (98-107); CREATININE 1.15 mg/dL (0.7-1.3)
[2019-03-02] MEDS: INSULIN LISPRO 100 UNITS/ML, PEN SQ-INSULIN SCH ×4 (07:00→21:00)
[2019-03-02] MEDS: FERROUS SULFATE 325 MG TABLET PO SCH ×2 (08:08→16:31)
[2019-03-02] MEDS: PANTOPROZOLE 40MG TABLET PO SCH (08:08)
[2019-03-02] MEDS: SODIUM CHLORIDE FLUSH 10ML SYR IVF SCH ×2 (08:09→21:09)
[2019-03-02 08:17] VITALS: BP 101/65
[2019-03-02] MEDS: ENOXAPARIN 40 MG/0.4 ML SQ SCH ×2 (13:58→16:31)
[2019-03-02 14:47] VITALS: BP 135/78
[2019-03-02] MEDS: OXYcodone IR 5MG TABLET PO PRN (16:32)
[2019-03-02] MEDS ORDERED: ONDANSETRON 2MG/ML, 2ML ONE (17:50)
[2019-03-02 19:47] VITALS: BP 104/68
[2019-03-02] MEDS: ATORVASTATIN 80 MG TABLET PO SCH (21:08)
[2019-03-02] MEDS: ACETAMINOPHEN 325 MG TABLET PO PRN (21:08)
[2019-03-02] MEDS: INSULIN GLARGINE 100 UNITS/ML, PEN SQ-INSULIN SCH (21:09)
[2019-03-03 02:59] VITALS: BP 109/71
[2019-03-03] MEDS: PIPERACILLIN/TAZO/PMX 3.375GM 50 ML IV SCH ×4 (05:21→22:51)
[2019-03-03] MEDS: INSULIN LISPRO 100 UNITS/ML, PEN SQ-INSULIN SCH ×4 (07:00→21:00)
[2019-03-03] MEDS: PANTOPROZOLE 40MG TABLET PO SCH (07:30)
[2019-03-03] MEDS: FERROUS SULFATE 325 MG TABLET PO SCH ×2 (08:00→17:39)
[2019-03-03 08:20] VITALS: BP 106/62
[2019-03-03] MEDS: SODIUM CHLORIDE FLUSH 10ML SYR IVF SCH ×2 (08:30→22:50)
[2019-03-03] MEDS: FLUCONAZOLE 200 MG/100 ML 100 ML IV SCH (08:33)
[2019-03-03 14:30] VITALS: BP 117/76
[2019-03-03] MEDS: ENOXAPARIN 40 MG/0.4 ML SQ SCH (17:39)
[2019-03-03] MEDS: ACETAMINOPHEN 325 MG TABLET PO PRN ×2 (17:39→22:47)
[2019-03-03 18:54] VITALS: BP 115/74
[2019-03-03] MEDS: ATORVASTATIN 80 MG TABLET PO SCH (22:47)
[2019-03-03] MEDS: INSULIN GLARGINE 100 UNITS/ML, PEN SQ-INSULIN SCH (22:49)
[2019-03-04] MEDS: ACETAMINOPHEN 325 MG TABLET PO PRN (02:26)
[2019-03-04 02:33] VITALS: BP 105/68
[2019-03-04] MEDS: PIPERACILLIN/TAZO/PMX 3.375GM 50 ML IV SCH ×2 (05:12→12:47)
[2019-03-04] MEDS: INSULIN LISPRO 100 UNITS/ML, PEN SQ-INSULIN SCH ×2 (07:00→12:44)
[2019-03-04 07:23] VITALS: BP 99/63
[2019-03-04] MEDS: PANTOPROZOLE 40MG TABLET PO SCH (07:47)
[2019-03-04] MEDS: SODIUM CHLORIDE FLUSH 10ML SYR IVF SCH (07:47)
[2019-03-04] MEDS: FLUCONAZOLE 200 MG/100 ML 100 ML IV SCH (07:47)
[2019-03-04] MEDS: FERROUS SULFATE 325 MG TABLET PO SCH (07:47)
[2019-03-04] MEDS ORDERED: ERGO500017 PO (11:44)
[2019-03-04] MEDS ORDERED: INSU100I13 SQ-INSULIN (11:44)
[2019-03-04] MEDS ORDERED: FERR-51 PO (11:44)
[2019-03-04] MEDS ORDERED: INSU100I11 SQ-INSULIN (11:44)
== END 2019-03-04 14:56 | DRG 853 ==
LOC: ED 16:26 → EDIP 16:57 → CCU 21:59 → ICU 02-26 00:13 → 3N 02-26 18:35 → 4NE 03-01 15:57
PROVIDERS: ADMIT Hospitalist; ATTEND Internal Medicine
PROC: 02HV33Z Insertion of Infusion Device into Superior Vena Cava, Percutaneous Approach (ICD-10-PCS; 2019-02-25)
PROC: B548ZZA Ultrasonography of Superior Vena Cava, Guidance (ICD-10-PCS; 2019-02-25)
PROC: 0KBW0ZZ Excision of Left Foot Muscle, Open Approach (ICD-10-PCS; principal; 2019-02-27 17:00)
PROC: 0Y6J0Z2 Detachment at Left Lower Leg, Mid, Open Approach (ICD-10-PCS; 2019-03-01)
DX: A41.9 Sepsis, unspecified organism (principal); N17.0 Acute kidney failure with tubular necrosis; E87.1 Hypo-osmolality and hyponatremia; I42.9 Cardiomyopathy, unspecified; I50.42 Chronic combined systolic (congestive) and diastolic (congestive) heart failure; L97.429 Non-pressure chronic ulcer of left heel and midfoot with unspecified severity; N13.6 Pyonephrosis; N25.81 Secondary hyperparathyroidism of renal origin; L03.90 Cellulitis, unspecified; Z88.8 Allergy status to other drugs, medicaments and biological substances; E11.621 Type 2 diabetes mellitus with foot ulcer; E11.65 Type 2 diabetes mellitus with hyperglycemia; E66.01 Morbid (severe) obesity due to excess calories; Z68.36 Body mass index [BMI] 36.0-36.9, adult; E55.9 Vitamin D deficiency, unspecified; I11.0 Hypertensive heart disease with heart failure; I25.10 Atherosclerotic heart disease of native coronary artery without angina pectoris; I25.2 Old myocardial infarction; I27.20 Pulmonary hypertension, unspecified; I87.8 Other specified disorders of veins; K42.9 Umbilical hernia without obstruction or gangrene; L97.529 Non-pressure chronic ulcer of other part of left foot with unspecified severity; L89.159 Pressure ulcer of sacral region, unspecified stage; N31.9 Neuromuscular dysfunction of bladder, unspecified; N32.0 Bladder-neck obstruction; R65.20 Severe sepsis without septic shock; Z82.49 Family history of ischemic heart disease and other diseases of the circulatory system; Z87.11 Personal history of peptic ulcer disease; Z87.891 Personal history of nicotine dependence; Z90.79 Acquired absence of other genital organ(s); Z91.14 Patient's other noncompliance with medication regimen; Z99.3 Dependence on wheelchair; N36.8 Other specified disorders of urethra
CPT/HCPCS: 36415; 36556; 71045; 74177; 80048; 80053; 81001; 82010; 82306; 82728; 82800; 82962; 83036; 83540; 83550; 83605; 83690; 83735; 83970; 84484; 85025; 87040; 87070; 87077; 87081; 87086; 87106; 87186; 87205; 87324; 93005; 96360; C8929; G0378; J0171; J0690; J1100; J1650; J2405; J2543; J2704; J2710; J3010; J3370; Q9957; Q9967; J0330; J1450; J1815; J7030; J7040

== ENCOUNTER → 2019-04-20 | Outpatient (CLI) | payer MEDICARE, MEDICAID ==
[~2019-04-20] MED LIST changes: +ASPI-496 PO; +ATOR40TA PO; +CARV3.1212 PO; +ERGO500017 PO; +FERR-51 PO; +INSU100I11 SQ-INSULIN; +INSU100I13 SQ-INSULIN; +POTA10TA5 PO; +SPIR25TA PO; +TORS20TA2 PO
== END | disposition home or self-care (01) ==
LOC: CFH 09:07
PROVIDERS: ATTEND Internal Medicine Geriatric Medicine
DX: K76.0 Fatty (change of) liver, not elsewhere classified (principal)
CPT/HCPCS: 76700

== ENCOUNTER 2019-08-25 07:59 | Day surgery (SDC) | payer MEDICARE, MEDICAID ==
[~2019-08-25] VITALS: Ht 182.9 cm; Wt 111.4 kg
[2019-08-25] MEDS ORDERED: ASPI-496 PO (08:21)
[2019-08-25] MEDS ORDERED: GABA100C PO (08:21)
[2019-08-25] MEDS ORDERED: SPIR25TA PO (08:21)
[2019-08-25] MEDS ORDERED: ERGO500017 PO (08:21)
[2019-08-25] MEDS ORDERED: ATOR20TA PO (08:21)
[2019-08-25] MEDS ORDERED: CARV3.1212 PO (08:21)
[2019-08-25] MEDS ORDERED: TORS20TA2 PO (08:21)
[2019-08-25] MEDS ORDERED: ACID1TAB PO (08:21)
[2019-08-25 08:24] VITALS: BP 85/53
[2019-08-25] MEDS ORDERED: SODIUM CHLORIDE 0.9% 1,000 ML IV SCH (08:30)
[2019-08-25] MEDS ORDERED: CEFAZOLIN PMX 1GM/50ML 50 ML IV ONE (08:30)
[2019-08-25] MEDS ORDERED: LIDOCAINE 1%, 10ML ONE (09:35)
[2019-08-25] MEDS ORDERED: FENTANYL PF 100 MCG/2ML ONE (09:47)
[2019-08-25] MEDS ORDERED: MIDAZOLAM 1 MG/ML, 5ML ONE (09:48)
[2019-08-25] MEDS ORDERED: NALOXONE 1 MG/ML, 2ML ONE (09:48)
[2019-08-25] MEDS ORDERED: FLUMAZENIL 0.1 MG/1 ML, 5ML ONE (09:48)
== END 2019-08-25 12:20 ==
LOC: OUT 07:59
PROVIDERS: ATTEND Physician Assistant
DX: R32 Unspecified urinary incontinence (principal); E11.51 Type 2 diabetes mellitus with diabetic peripheral angiopathy without gangrene; I48.91 Unspecified atrial fibrillation; I11.0 Hypertensive heart disease with heart failure; I50.20 Unspecified systolic (congestive) heart failure; I25.2 Old myocardial infarction; J44.9 Chronic obstructive pulmonary disease, unspecified; Z79.4 Long term (current) use of insulin; Z79.82 Long term (current) use of aspirin; Z79.899 Other long term (current) drug therapy; Z87.891 Personal history of nicotine dependence; Z88.8 Allergy status to other drugs, medicaments and biological substances; Z89.512 Acquired absence of left leg below knee; Z98.890 Other specified postprocedural states
CPT/HCPCS: 51102; 76942; 77002; 99156; 99157; C1769; J0690; J2250; J3010; J7030; 75989; J2310

== ENCOUNTER 2019-09-03 06:54 | Outpatient (CLI) | payer MEDICARE, MEDICAID ==
[~2019-09-03 06:54] MED LIST changes: +ACID1TAB PO; +ATOR20TA PO; +GABA100C PO
== END 2019-09-03 23:59 | disposition home or self-care (01) ==
LOC: CVU 06:54
PROVIDERS: ATTEND Internal Medicine Cardiovascular Disease
DX: I65.23 Occlusion and stenosis of bilateral carotid arteries (principal); I35.8 Other nonrheumatic aortic valve disorders; I25.10 Atherosclerotic heart disease of native coronary artery without angina pectoris; I25.5 Ischemic cardiomyopathy
CPT/HCPCS: 93880; 93922; 93926; C8929; Q9957

== ENCOUNTER 2019-09-27 15:27 | Emergency (ER) | payer MEDICARE, MEDICAID ==
[~2019-09-27] VITALS: Ht 182.9 cm; Wt 113.3 kg
[2019-09-27] MEDS ORDERED: SODIUM CHLORIDE FLUSH 10ML SYR IVF ONE (16:00)
[2019-09-27] MEDS ORDERED: PLEASE ENTER HEIGHT AND WEIGHT MC SCH (16:00)
[2019-09-27 16:11] LABS: BASOPHILS # (AUTO) 0.06 x10^3/uL (0-0.1); BASOPHILS % (AUTO) 0 % (0-1); EOSINOPHILS # (AUTO) 0.16 x10^3/uL (0-0.4); EOSINOPHILS % (AUTO) 1 % (1-7); LYMPHOCYTES % (AUTO) 19 % (22-44); MD MORPH REVIEW ONLY; MEAN CORPUSCULAR HEMOGLOBIN 25.1 pg (27.5-34.5); MEAN CORPUSCULAR HGB CONC 32.5 g/dL (33.2-36.2); MEAN CORPUSCULAR VOLUME 77.1 fL (81-97); MEAN PLATELET VOLUME 9.5 fL (7.4-10.4); MONOCYTES % (AUTO) 8 % (2-9); NEUTROPHILS # (AUTO) 10.36 x10^3/uL (1.8-6.8); NEUTROPHILS % (AUTO) 72 % (42-75); PLATELET COUNT 301 x10^3/uL (130-400); RED BLOOD COUNT 5.05 x10^6/uL (4.38-5.82); RED CELL DISTRIBUTION WIDTH 25.2 % (9.4-14.8)
[2019-09-27 16:17] LABS: ALANINE AMINOTRANSFERASE 26 U/L (12-78); ALBUMIN 2.7 g/dL (3.4-5.0); ANION GAP 10 mmol/L (5-15); CHLORIDE 100 mmol/L (98-107)
[2019-09-27 16:20] LABS: ALKALINE PHOSPHATASE 133 U/L (45-117); BILIRUBIN,TOTAL 0.9 mg/dL (0.2-1.0); CREATININE 2.08 mg/dL (0.7-1.3); TOTAL PROTEIN 8.7 g/dL (6.4-8.2)
[2019-09-27 16:37] LABS: ANISOCYTOSIS 1+; MICROCYTOSIS 1+; OVALOCYTES 1+
[2019-09-27 16:39] LABS: <PLATELET ESTIMATE> ADEQUATE; <PLT MORPHOLOGY> NORMAL PLT MORPH
--- NOTE | 2019-09-27 17:34 | NUR ---
PT GOING TO IR AT THIS TIME.
[2019-09-27] MEDS ORDERED: LIDOCAINE 1%, 20ML ONE (17:51)
[2019-09-27] MEDS ORDERED: SODIUM CHLORIDE 0.9% 1,000ML IVBOLUS ONE (18:30)
[2019-09-27] MEDS ORDERED: VISIPAQUE 270 MG/ML, 50ML BOTTLE ONE (18:46)
--- NOTE | 2019-09-27 19:26 | NUR ---
JENKINS COMPLETED. PATIENT TOLERATED POORLY. UPDATED VITAL SIGNS
--- NOTE | 2019-09-27 21:03 | NUR ---
UA RESENT TO LAB, IT WAS SENT EARLIER HOWEVER LAB STATES THEY DO NOT HAVE THE SAMPLE
[2019-09-27 21:18] LABS: MICROSCOPIC INDICATED
[2019-09-27] MEDS ORDERED: CEFTRIAXONE PMX 1GM/50ML 50 ML ONE (21:45)
--- NOTE | 2019-09-27 21:49 | NUR ---
PT MEDICATED PER EMAR. 5 RIGHTS ADDRESSED. PT AGITATED AND GRUMPY. PT UPSET THAT THINGS ARE TAKING SO LONG. HE STATES "I AM READY TO GO RIGHT NOW, THIS IS RIDICULOUS. CALL [facility] AND TELL THEM TO HURRY UP. ALL THEY DO IS SIT ON THEIR ASSES ALL DAY". PT EDUCATED ON THE PROCESS OF ARRANGING TRANSPORT HOME. HE WAS MADE AWARE OF WHERE WE ARE IN THE PROCESS. HE ALSO HAS TO FINISH THE IV ABX PRIOR TO GOING BACK TO [facility]. PT PROVIDED WITH WARM BLANKETS AND DENIES ANY OTHER NEEDS AT THIS TIME.
[2019-09-27] MEDS ORDERED: CEFTRIAXONE PMX 1GM/50ML 50 ML IV ONE (22:00)
[2019-09-27] MEDS ORDERED: CEFTRIAXONE 1,000 MG IV ONE (22:00)
[2019-09-27 22:06] VITALS: BP 102/55
--- NOTE | 2019-09-27 22:06 | NUR ---
ROCEPHIN FINISHED. PT UPDATED ON THE [facility] ETA. IV REMOVED. DISCHARGE INSTRUCTIONS PROVIDED TO PT, ALONG WITH EDUCATION ON ABX PRESCRIBED.
--- NOTE | 2019-09-27 22:35 | NUR ---
Patient/Caregiver given discharge instructions and they have confirmed that they understand the instructions. Patient back to [facility] by [facility]INE. ALL PAPERWORK GIVEN TO TRANSPORT STAFF TO INCLUDE PRESCRIPTION
== END 2019-09-27 22:37 | disposition home or self-care (01) ==
LOC: ED 20:06
DX: N30.01 Acute cystitis with hematuria (principal); T83.098D Other mechanical complication of other urinary catheter, subsequent encounter; I10 Essential (primary) hypertension; E11.65 Type 2 diabetes mellitus with hyperglycemia; Z87.891 Personal history of nicotine dependence
CPT/HCPCS: 36415; 51710; 75989; 80053; 81001; 85025; 87077; 87086; 87186; 96365; 99285; C1769; J0696; J7030; Q9966

== ENCOUNTER → 2019-12-01 | Outpatient (CLI) | payer MEDICARE, MEDICAID | END | disposition home or self-care (01) | LOC: EDSTATUS 11-20 15:00 → SMMGROBB 06:41 → EDSTATUS 07:30 → RAD 08:00 | PROVIDERS: ATTEND Registered Nurse Registered Nurse First Assistant | DX: M51.26 Other intervertebral disc displacement, lumbar region (principal); M48.061 Spinal stenosis, lumbar region without neurogenic claudication; M47.816 Spondylosis without myelopathy or radiculopathy, lumbar region | CPT/HCPCS: 72148 ==

== ENCOUNTER 2020-03-11 19:28 | Emergency (ER) | payer MEDICARE, MEDICAID ==
[~2020-03-11] VITALS: Ht 182.9 cm; Wt 110.0 kg
[~2020-03-11 19:28] MED LIST changes: +AMLO-211 PO; -AMLO10TA8 PO; +BANATROL PLUS PO; +OXYC5CAP2 PO; +TIZA2CAP2 PO; +losartan PO
[2020-03-11 19:38] VITALS: BP 125/74
--- NOTE | 2020-03-11 21:05 | NUR ---
REPORT GIVEN TO ABUNDIO BEY AT [facility]. ATTENDING DR. JEFF DE LA TORRE
== END 2020-03-11 21:48 | disposition home or self-care (01) ==
LOC: ED 21:00
DX: U07.1 COVID-19 (principal); I10 Essential (primary) hypertension; E11.9 Type 2 diabetes mellitus without complications; Z00.00 Encounter for general adult medical examination without abnormal findings; Z87.891 Personal history of nicotine dependence
CPT/HCPCS: 99283

== ENCOUNTER 2020-07-05 09:39 | Outpatient (CLI) | payer MEDICARE, MEDICAID | END 2020-07-05 23:59 | disposition home or self-care (01) | LOC: CVU 09:39 | PROVIDERS: ATTEND Internal Medicine Cardiovascular Disease | DX: I08.0 Rheumatic disorders of both mitral and aortic valves (principal); I65.23 Occlusion and stenosis of bilateral carotid arteries; I25.10 Atherosclerotic heart disease of native coronary artery without angina pectoris; I25.5 Ischemic cardiomyopathy | CPT/HCPCS: 93880; C8929; Q9957 ==